=== PATIENT | female | born 1985 | race Asian ===

== ENCOUNTER 2021-12-09 21:06 | Emergency (ER) | payer OTHER ==
[~2021-12-09] VITALS: Ht 154.9 cm; Wt 61.4 kg
[2021-12-09 21:23] VITALS: BP 136/77
--- NOTE | 2021-12-09 21:37 | NUR ---
PT TO LOBBY.
[2021-12-10 00:01] LABS: APPEARANCE,URINE SL CLOUDY (CLEAR); BILIRUBIN,URINE NEGATIVE (NEGATIVE); BLOOD, URINE 2+ (NEGATIVE); COLOR,URINE YELLOW (YELLOW); LEUKOCYTE ESTERASE ,URINE NEGATIVE (NEGATIVE); NITRITE, URINE NEGATIVE (NEGATIVE); PH,URINE 7.5 (5.0-9.0); UGLUCOSE NEGATIVE (NEGATIVE)
[2021-12-10 00:49] LABS: RBC,URINE 0-5 /HPF (0-5); WBC,URINE 0-5 /HPF (0-5)
[2021-12-10 01:39] VITALS: BP 136/77
--- NOTE | 2021-12-10 01:39 | NUR ---
Patient discharged with v/s stable. Written and verbal after care instructions given and explained. Patient verbalized understanding. Ambulatory with steady gait. All questions addressed prior to discharge. Advised to follow up with PMD.
== END 2021-12-10 01:39 | disposition home or self-care (01) ==
LOC: MED 21:06
DX: O20.0 Threatened abortion (principal); Z3A.01 Less than 8 weeks gestation of pregnancy
CPT/HCPCS: 36415; 76817; 81001; 84702; 86900; 86901; 99284; Q0092

== ENCOUNTER 2021-12-12 18:51 | Emergency (ER) | payer OTHER ==
[~2021-12-12] VITALS: Ht 152.4 cm; Wt 56.7 kg
--- NOTE | 2021-12-12 19:20 | NUR ---
BIBA TO [facility]
[2021-12-12 19:23] VITALS: BP 114/80
[2021-12-12 20:07] LABS: BASOPHILS # (AUTO) 0.2 K/uL (0.00-0.22); BASOPHILS % (AUTO) 1.1 % (0.0-2.0); EOSINOPHILS # (AUTO) 0.2 K/uL (0-0.4); EOSINOPHILS % (AUTO) 1.6 % (0.0-4.0); HEMATOCRIT 39.1 % (36-48); HEMOGLOBIN 13.3 g/dL (12.0-16.0); LYMPHOCYTES # (AUTO) 2.7 K/uL (2.5-16.5); LYMPHOCYTES % (AUTO) 17.5 % (20.5-51.1); MEAN CORPUSCULAR HEMOGLOBIN 31 pg (27-31); MEAN CORPUSCULAR HGB CONC 34 g/dL (33-37); MEAN CORPUSCULAR VOLUME 89.9 fL (80-94); MONOCYTES # (AUTO) 0.8 K/uL (0.8-1.0); MONOCYTES % (AUTO) 5.2 % (1.7-9.3); NEUTROPHILS # (AUTO) 11.4 K/uL (1.8-7.7); NEUTROPHILS % (AUTO) 74.6 % (42.2-75.2); PLATELET COUNT (AUTO) 385 K/uL (140-450); RED BLOOD CELL COUNT(AUTO) 4.35 MIL/uL (4.20-5.40); RED CELL DISTRIBUTION WIDTH 12.9 % (11.6-13.7); WHITE BLOOD COUNT (AUTO) 15.2 K/uL (4.8-10.8)
[2021-12-12 21:31] VITALS: BP 114/80
== END 2021-12-12 21:31 | disposition home or self-care (01) ==
LOC: MED 18:51
DX: O20.8 Other hemorrhage in early pregnancy (principal)
CPT/HCPCS: 81025; 84702; 85025; 99283